=== PATIENT | male | born 1995 | race Two or more races ===

== ENCOUNTER 2019-07-04 16:15 | Emergency (ER) | payer MEDICAID ==
[~2019-07-04] VITALS: Ht 170.2 cm; Wt 79.0 kg
[2019-07-04] MEDS ORDERED: LORazepam 2 MG/ML, 1ML IVPush ONE ×2 (17:00→18:00)
[2019-07-04] MEDS ORDERED: SODIUM CHLORIDE FLUSH 10ML SYR IVF ONE (17:00)
[2019-07-04 17:03] LABS: BASOPHILS # (AUTO) 0.02 x10^3/uL (0-0.1); BASOPHILS % (AUTO) 0 % (0-1); EOSINOPHILS # (AUTO) 0.12 x10^3/uL (0-0.4); EOSINOPHILS % (AUTO) 1 % (1-7); LYMPHOCYTES # (AUTO) 1.31 x10^3/uL (1-3.4); LYMPHOCYTES % (AUTO) 7 % (22-44); MD NO; MEAN CORPUSCULAR HEMOGLOBIN 29.2 pg (27.5-34.5); MEAN CORPUSCULAR HGB CONC 33.4 g/dL (33.2-36.2); MEAN CORPUSCULAR VOLUME 87.7 fL (81-97); MEAN PLATELET VOLUME 8.4 fL (7.4-10.4); MONOCYTES % (AUTO) 4 % (2-9); NEUTROPHILS # (AUTO) 15.76 x10^3/uL (1.8-6.8); NEUTROPHILS % (AUTO) 88 % (42-75); PLATELET COUNT 289 x10^3/uL (130-400); RED BLOOD COUNT 5.35 x10^6/uL (4.38-5.82); RED CELL DISTRIBUTION WIDTH 13.3 % (9.4-14.8)
[2019-07-04 17:12] LABS: ALANINE AMINOTRANSFERASE 57 U/L (12-78); ALBUMIN 4.3 g/dL (3.4-5.0); ANION GAP 14 mmol/L (5-15); CALCIUM 9.2 mg/dL (8.5-10.1); CHLORIDE 99 mmol/L (98-107); CREATININE 1.79 mg/dL (0.7-1.3)
[2019-07-04 17:16] LABS: ALKALINE PHOSPHATASE 80 U/L (45-117); BILIRUBIN,TOTAL 1.1 mg/dL (0.2-1.0); TROPONIN I < 0.015 ng/mL (0.000-0.045)
[2019-07-04] MEDS ORDERED: LORazepam 2 MG/ML, 1ML ONE ×2 (17:23→17:51)
[2019-07-04] MEDS ORDERED: SODIUM CHLORIDE 0.9% 1,000ML IVBOLUS ONE (18:00)
--- NOTE | 2019-07-04 19:29 | NUR ---
meds completed. ns bolus completed. iv dc'd at this time. per md pt can leave when able to abulate.
[2019-07-04 19:38] VITALS: BP 119/72
--- NOTE | 2019-07-04 20:06 | NUR ---
attempt to arouse pt at this time. pt still under effects of medication at this time. vss. equal chest rise and fall observed. nadn.
== END 2019-07-04 21:01 | disposition home or self-care (01) ==
LOC: ED 20:55
DX: E86.0 Dehydration (principal); R00.0 Tachycardia, unspecified; F14.10 Cocaine abuse, uncomplicated
CPT/HCPCS: 36415; 70450; 71045; 80053; 84484; 85025; 93005; 96361; 96374; 96376; 99284; J2060; J7030